=== PATIENT | male | born 1985 | race Caucasian/White ===

== ENCOUNTER → 2019-06-22 | Emergency (ER) | payer BC, OTHER ==
[~2019-06-22] VITALS: Ht 182.9 cm; Wt 65.8 kg
[~2019-06-22] MED LIST: ASPirin 81 mg TAB PO ONE
[2019-06-22 10:13] LABS: Basophils # (auto) 0 10 ^3/uL (0-0.2); Basophils % (auto) 0.7 % (0.0-2.0); Eosinophils # (auto) 0.1 10 ^3/uL (0-0.8); Eosinophils % (auto) 2.1 % (0.0-7.0); Hematocrit 45.1 % (41.0-53.0); Hemoglobin 14.9 g/dL (13.5-17.5); Mean Corpuscular Hemoglobin 29.6 pg (28.0-32.0); Mean Corpuscular Hgb Conc. 33.1 g/dL (32.0-36.0); Mean Corpuscular Volume 89.2 fL (80.0-100.0); Monocytes # (auto) 0.4 10 ^3/uL (0-1.3); Monocytes % (auto) 7.6 % (0.0-12.0); Neutrophils # (auto) 2.5 10 ^3/uL (1.6-8.6); Neutrophils % (auto) 49.6 % (37.0-80.0); Nucleated Red Blood Cells % 0.1 %; Platelet Count (auto) 225 10^3/uL (140-450); Red Blood Cells 5.05 10^6/uL (4.5-5.90); Red Cell Distribution Width 14.4 % (11.8-14.3)
[2019-06-22 10:35] LABS: Albumin 4.3 g/dL (3.4-5.0); Anion Gap 5 (5-15); Blood Urea Nitrogen 15 mg/dL (7-18); Calcium 9.2 mg/dL (8.5-10.1); Carbon Dioxide 27 mmol/L (21-32); Chloride 107 mmol/L (98-107); Glucose 87 mg/dL (74-106); Potassium 3.9 mmol/L (3.5-5.1); Sodium 139 mmol/L (136-145)
[2019-06-22 10:40] LABS: Alanine Aminotransferase 22 U/L (16-61); Alkaline Phosphatase 56 U/L (45-117); Aspartate Aminotransferase 19 U/L (15-37); BUN/Creatinine Ratio 14.6; Bilirubin, Total 1.2 mg/dL (0.2-1.0); GFR African American 107 mL/min; GFR Non-African American 88 mL/min; Total Protein 7.5 g/dL (6.4-8.2)
[2019-06-22 11:21] LABS: Amphetamine Screen, Urine NEGATIVE (NEGATIVE); Barbiturate Scree,Urine NEGATIVE (NEGATIVE); Benzodiazephine Screen, Urine NEGATIVE (NEGATIVE); Cannabinoid Screen, Urine POSITIVE (NEGATIVE); Cocaine Screen, Urine POSITIVE (NEGATIVE); Opiate Scree,Urine NEGATIVE (NEGATIVE); Phencyclidine Screen, Urine NEGATIVE (NEGATIVE)
[2019-06-22 11:41] VITALS: BP 118/75
== END | disposition home or self-care (01) ==
LOC: ER 09:36
DX: F41.9 Anxiety disorder, unspecified (principal); R07.89 Other chest pain
CPT/HCPCS: 36415; 71046; 80053; 80307; 84484; 85025; 93005